=== PATIENT | female | born 1980 | race Caucasian/White ===

== ENCOUNTER 2022-06-12 14:31 | Outpatient (CLI) | payer BC, SELFPAY ==
--- NOTE | 2022-06-12 15:00 | CRLHL7_ITS ---
For Patients: As a result of the Century Cures Act, medical imaging exams and procedure reports are released immediately into your electronic medical record. You may view this report before your referring provider. If you have questions, please contact your health care provider. BILATERAL SCREENING MAMMOGRAM WITH COMPUTER-AIDED DETECTION AND TOMOSYNTHESIS TECHNIQUE: CC and MLO views were obtained. These mammographic images have been obtained using full-field digital technique. These mammographic images were interpreted with the benefit of computer-aided detection. Breast Tomosynthesis was used in this interpretation. COMPARISON FILM: RIGHT diagnostic 04/14/18, LEFT diagnostic 09/23/17. FINDINGS: There are scattered areas of fibroglandular density IMPRESSION: There is no radiographic evidence for malignancy. ASSESSMENT: BI-RADS Category 1: Negative RECOMMENDATION: Routine screening mammogram in 1 year. A lay language report of this examination will be provided to the patient. Isiah Boyer M.D. Diagnostic Radiologist [email or web address] FAIZA/Dictated by: Isiah Boyer MD @ 06/13/2022 12:28:00 PM (Electronically Signed)
== END 2022-06-12 14:32 | disposition home or self-care (01) ==
LOC: MAMMO 14:34
PROVIDERS: PCP Family Medicine; Visit Provider Physician Assistant
DX: Z12.31 Encounter for screening mammogram for malignant neoplasm of breast (principal)
CPT/HCPCS: 77063; 77067

== ENCOUNTER 2022-07-29 14:42 | Outpatient (CLI) | payer BC, SELFPAY ==
--- NOTE | 2022-07-29 15:00 | CRLHL7_ITS ---
For Patients: As a result of the Century Cures Act, medical imaging exams and procedure reports are released immediately into your electronic medical record. You may view this report before your referring provider. If you have questions, please contact your health care provider. INDICATION: Palpable area under right mandible, increased in size. TECHNIQUE: Targeted ultrasound under right mandible at the site of palpable abnormality. COMPARISON: Ultrasound 02/24/2020 of the palpable abnormality under the right mandible. FINDINGS: No definite mass or lymphadenopathy at the site of palpable abnormality under the right mandible. Subcutaneous soft tissue in the region of palpable abnormality appears mildly edematous with no hypervascularity. IMPRESSION: No discernible mass or lymphadenopathy. Given reported increase in size of the palpable abnormality consider CT of the neck with contrast for further evaluation. Dictated by Dallas Del Cid MD @ 07/29/2022 7:45:41 PM (Electronically Signed)
== END 2022-07-29 14:43 | disposition home or self-care (01) ==
LOC: US 14:43
PROVIDERS: PCP Family Medicine; Visit Provider Physician Assistant
DX: R22.1 Localized swelling, mass and lump, neck (principal)
CPT/HCPCS: 76536

== ENCOUNTER 2022-09-17 14:31 | Outpatient (CLI) | payer BC, SELFPAY ==
--- NOTE | 2022-09-17 15:00 | CRLHL7_ITS ---
For Patients: As a result of the Century Cures Act, medical imaging exams and procedure reports are released immediately into your electronic medical record. You may view this report before your referring provider. If you have questions, please contact your health care provider. INDICATION: Neck mass. TECHNIQUE: CT of the neck with 137 cc Isovue 370 iodinated contrast agent. Coronal and sagittal reconstructions are included. COMPARISON: None. FINDINGS: There is mild inflammatory fat stranding within the right submandibular subcutaneous soft tissues as well as the right supraclavicular subcutaneous soft tissues. No organized fluid collections. No mass or inflammatory process elsewhere within the neck. The oral cavity, nasopharyngeal, oropharyngeal and hypopharyngeal spaces are normal. The supraglottic, glottic and infraglottic larynx are normal. The airway including the trachea is normal and is patent. The parotid glands, submandibular and sublingual glands are normal in appearance. 23 millimeter hypodense nodule right thyroid lobe. The vascular structures opacify normally with contrast material. No suspicious lytic or blastic osseous lesions. Scattered cervical spondylosis without significant bony neural foraminal stenosis. No periapical dental disease. Visualized paranasal sinuses and mastoid air cells are clear. Visualized orbital and intracranial contents are normal. Mediastinum and soft tissues of the imaged chest wall are normal. Visualized portions of the upper lungs are clear. IMPRESSION: 1. Right submandibular/supraclavicular subcutaneous inflammatory fat stranding, which could reflect cellulitis. No evidence of abscess. 2. 23 millimeter hypodense nodule right thyroid lobe. 3. Otherwise, no mass or lymphadenopathy within the neck. Please note that all CT scans at this facility use dose modulation, iterative reconstruction, and/or weight-based dosing when appropriate to reduce radiation dose to as low as reasonably achievable. Dictated by Javier Sexton MD @ 09/18/2022 9:08:47 AM (Electronically Signed)
== END 2022-09-17 14:32 | disposition home or self-care (01) ==
LOC: CT 14:32
PROVIDERS: PCP Family Medicine; Visit Provider Family Medicine
DX: R22.1 Localized swelling, mass and lump, neck (principal); E04.1 Nontoxic single thyroid nodule
CPT/HCPCS: 70491; Q9967

== ENCOUNTER 2022-11-28 13:16 | Outpatient (CLI) | payer BC, SELFPAY ==
[2022-11-28 15:34] LABS: Chloride* 104 mmol/L (96-114); Potassium* 4.7 mmol/L (3.6-5.1); Sodium* 140 mmol/L (135-149)
[2022-11-28 15:37] LABS: Blood Urea Nitrogen* 15 mg/dL (5-24); Carbon Dioxide* 28 mmol/L (20-32); Creatinine* 0.9 mg/dL (0.5-1.5); Estimated Glomerular Filt Rate 82 ml/min
[2022-11-28 15:38] LABS: Calcium* 9.8 mg/dL (8.4-10.6); Glucose* 113 mg/dL (60-115)
[2022-11-28 15:40] LABS: C Reactive Protein* 0.7 mg/dL (0.5-1.0)
[2022-11-30 09:56] LABS: Rheumatoid Factor 15 IU/mL (0-14)
[2022-11-30 21:08] LABS: Anti-Nuclear Ab(ANA)IgG ELISA Detected (None Detected)
[2022-12-02 13:32] LABS: ANA Pattern Centromere; ANA Titer >1:2560; Antinuclear AntibodyHEp-2 Detected (<1:80)
== END 2022-11-28 13:17 | disposition home or self-care (01) ==
PROVIDERS: PCP Family Medicine; Visit Provider Family Medicine
DX: R53.83 Other fatigue (principal); I73.00 Raynaud's syndrome without gangrene; M25.50 Pain in unspecified joint; I10 Essential (primary) hypertension; E66.01 Morbid (severe) obesity due to excess calories; F41.9 Anxiety disorder, unspecified; E04.1 Nontoxic single thyroid nodule
CPT/HCPCS: 80048; 84443; 86039; 86140; 86431; 86618

== ENCOUNTER 2023-10-13 14:40 | Outpatient (CLI) | payer BC, SELFPAY ==
--- NOTE | 2023-10-13 15:00 | CRLHL7_ITS ---
For Patients: As a result of the Cures Act, medical imaging exams and procedure reports are released immediately into your electronic medical record. You may view this report before your referring provider. If you have questions, please contact your health care provider. BILATERAL SCREENING MAMMOGRAM WITH COMPUTER-AIDED DETECTION AND TOMOSYNTHESIS TECHNIQUE: CC and MLO views were obtained. These mammographic images have been obtained using full-field digital technique. These mammographic images were interpreted with the benefit of computer-aided detection. Breast Tomosynthesis was used in this interpretation. COMPARISON FILM: 06/12/22, 04/14/18, 09/23/17. FINDINGS: There are scattered areas of fibroglandular density IMPRESSION: There is no radiographic evidence for malignancy. ASSESSMENT: BI-RADS Category 1: Negative RECOMMENDATION: Routine screening mammogram in 1 year. A lay language report of this examination will be provided to the patient. ARNEL KUMAR M.D. Diagnostic/Nuclear Medicine Radiologist [email or web address] Transcribed: 2:48 p.mEloisa rios/Dictated by: Arnel Kumar MD @ 10/15/2023 9:12:00 AM (Electronically Signed)
== END 2023-10-13 14:41 | disposition home or self-care (01) ==
LOC: MAMMO 14:41
PROVIDERS: PCP Family Medicine; Visit Provider Family Medicine
DX: Z12.31 Encounter for screening mammogram for malignant neoplasm of breast (principal)
CPT/HCPCS: 77063; 77067

== ENCOUNTER 2023-12-08 05:06 | Emergency (ER) | payer BC, SELFPAY ==
[2023-12-08 05:36] VITALS: BP 137/84; PULSE 82; RESP 20; TEMP 36.9; O2SAT 97; BMI 37.8
--- NOTE | 2023-12-08 06:11 | ED.GENADULT ---
HPI - General Adult General Chief complaint: Cough Stated complaint: Cough /Congestion Time Seen by Provider: 12/08/23 05:28 Source: patient Mode of arrival: ambulatory History of Present Illness HPI narrative: 43-year-old female presents the emergency department for evaluation of cough for the past 5-7 days. History of viral-induced asthma, last tried her nebulizer at around 2:00 a.m. with no significant improvement in symptoms. Cough is becoming a little more productive. No fever. No severe shortness of breath. She is immunocompromised on Plaquenil for scleroderma. She also has a history of sleep apnea. Has tried Mucinex, DayQuil with no significant improvement in symptoms. No pertinent travel but has been is also ill. No prior history of intubation or hospitalization for her asthma. No nausea or vomiting. No chest pain or cardiac symptoms. Past medical history notable for Raynaud's disease, scleroderma, hypertension, depression. Medications are reviewed and are accurate as listed with the exception of the newly started Plaquenil which is not on her list. Allergies reviewed, verified. nonsmoker ROS notable for the generalized and HEENT and respiratory symptoms as above, otherwise denies times 12 systems.. Related Data Home Medications Medication Instructions Recorded Confirmed albuterol sulfate 90 mcg/actuation 2 puff inhalation Q4H PRN 04/04/22 12/08/23 aerosol inhaler cholecalciferol (vitamin D3) 25 1,000 unit PO DAILY 04/04/22 12/08/23 mcg (1,000 unit) tablet lorazepam 0.5 mg tablet 0.25 mg PO DIRECTED PRN 11/28/22 12/08/23 nifedipine 30 mg tablet,extended 30 mg PO DAILY 12/08/23 12/08/23 release 24 hr sertraline 25 mg tablet 25 mg PO DAILY 12/08/23 12/08/23 Previous Rx's Medication Instructions Recorded pantoprazole 40 mg tablet,delayed 40 mg PO QDAY #30 tabs 08/26/23 release (Protonix) losartan 100 1 tab PO DAILY #90 tabs 09/22/23 mg-hydrochlorothiazide 25 mg tablet metoprolol succinate 200 mg 200 mg PO DAILY #90 tabs 09/22/23 tablet,extended release 24 hr norethindrone (contraceptive) 0.35 0.35 mg PO ONCE #84 tabs 01/25/24 mg tablet (Emily) doxycycline hyclate 100 mg capsule 100 mg PO BID #14 caps 12/08/23 prednisone 20 mg tablet See Rx Instructions .Route 12/08/23 .COMPLEX #7 tabs Allergies Allergy/AdvReac Type Severity Reaction Status Date / Time codeine Allergy Intermediate Hives Verified 12/08/23 05:38 cetirizine Allergy Mild Hives Verified 12/08/23 05:38 loratadine Allergy Mild Hives Verified 12/08/23 05:38 [facility] Medical History Skin lesion ?L98.9 - Disorder of the skin and subcutaneous tissue, unspecified (ICD-10) GERD (gastroesophageal reflux disease) ?K21.9 - Gastro-esophageal reflux disease without esophagitis (ICD-10) Joint pain ?M25.50 - Pain in unspecified joint (ICD-10) Raynauds phenomenon ?I73.00 - Raynaud's syndrome without gangrene (ICD-10) Obstructive sleep apnea treated with continuous positive airway pressure (CPAP) ?G47.33 - Obstructive sleep apnea (adult) (pediatric) (ICD-10) ?Z99.89 - Dependence on other enabling machines and devices (ICD-10) Seasonal allergies ?J30.2 - Other seasonal allergic rhinitis (ICD-10) Obsessive-compulsive disorder ?F42.9 - Obsessive-compulsive disorder, unspecified (ICD-10) Morbid obesity ?E66.01 - Morbid (severe) obesity due to excess calories (ICD-10) Low serum high density lipoprotein (HDL) ?R74.8 - Abnormal levels of other serum enzymes (ICD-10) Hypertension ?I10 - Essential (primary) hypertension (ICD-10) History of gastroesophageal reflux (GERD) ?Z87.19 - Personal history of other diseases of the digestive system (ICD-10) Frequent nocturnal awakening ?G47.00 - Insomnia, unspecified (ICD-10) Depression ?F32.A - Depression, unspecified (ICD-10) Surgical History History of third molar tooth extraction (07/10/09) ?K08.409 - Partial loss of teeth, unspecified cause, unspecified class (ICD-10) Family History Father Alcoholism OCD (obsessive compulsive disorder) High blood pressure Anxiety disorder Mother COPD (chronic obstructive pulmonary disease) High blood pressure Anxiety disorder Maternal Grandmother Myocardial infarction, Onset Age: 75 Thyroid disease Other Pancreatitis Social History Narrative: . Self-employed. Has completed college. Nonsmoker. Social alcohol use. Denies recreational drug use. Denies concerns for safety or abuse. Smoking Status: Never smoker How often do you have a drink containing alcohol: never AUDIT-C Alcohol total score: 0 Non-prescribed substance use: denies use Little interest or pleasure in doing things: several days Feeling down, depressed, or hopeless: not at all Exam Const: Vital Signs, click to edit/add: Vital Signs - 24 hr 12/08/23 05:36 Temperature 98.5 F Pulse Rate [Right Pulse Oximeter] 82 Respiratory Rate 20 Blood Pressure [Ri ght Upper Arm] 137/84 Pulse Oximetry 97 Oxygen Delivery Me thod Room Air Documenting provider has reviewed patient's vital signs: yes Common normals: no apparent distress General appearance: comfortable HENMT: Common normals: normocephalic Head and scalp: normocephalic Mouth: oral and palatal mucosa normal Throat: posterior oropharynx normal Other: Nose with clear mucus rhinorrhea Eye: Common normals: conjunctivae normal General eye: normal appearance of both eyes Conjunctiva: conjunctiva(e) normal Neck & C-Spine: Other: Mild anterior cervical lymphadenopathy, no meningeal signs. Resp: Other: Normal respiratory effort, mild end-expiratory wheezing. Coarse crackles right lower posterior lung samuel, left side otherwise normal. Upper airway congestion does somewhat clear with cough. No increased respiratory effort. Cardio: Common normals: regular rate, regular rhythm, S1 normal heart sound, S2 normal heart sound and no murmurs Rate: regular rate Rhythm: regular rhythm Heart sounds: S1 normal and S2 normal Extremity: Common normals: normal to inspection and normal capillary refill Psych: Appearance: grossly normal Attitude: engaged Insight: insight good Judgement: judgment good Skin: Common normals: no rashes or lesions noted General skin exam: no rashes or lesions noted Course Course ED Course: Worsening cough inpatient on immunosuppressants with physical findings consistent with pneumonia. No signs of high fever, sepsis or cardiac disease. Recommended viral swabs. Will start with prednisone 20 mg p.o. x1, DuoNeb and doxycycline 100 mg p.o. x1. Anticipate continuing these medications on discharge. Reevaluation(s) Time of Reevaluation #1: 06:26 Reevaluation #1: Influenza B positive. Not a candidate for antiviral medicine due to duration of illness. Alarm symptoms were reviewed. Patient will continue on 1 week of doxycycline and 5 days of prednisone, continue nebulizer. See discharge instructions. Vital Signs Vital signs: Initial Vital Signs Respiratory Effort Normal, Spontaneous, Non-Labored 12/08/23 05:28 Respiratory Depth Normal 12/08/23 05:28 Respiratory Pattern Normal 12/08/23 05:28 Vital Signs Temperature 98.5 F 12/08/23 05:36 Pulse Rate 82 12/08/23 05:36 Respiratory Rate 20 12/08/23 05:36 Blood Pressure 137/84 12/08/23 05:36 Pulse Oximetry 97 12/08/23 05:36 Oxygen Delivery Method Room Air 12/08/23 05:36 Temperature 98.5 F 12/08/23 05:36 Pulse Rate 82 12/08/23 05:36 Respiratory Rate 20 12/08/23 05:36 Blood Pressure 137/84 12/08/23 05:36 Pulse Oximetry 97 12/08/23 05:36 Oxygen Delivery Method Room Air 12/08/23 05:36 Medications Administered Medications: Generic Name Dose Route Start Last Admin Trade Name Freq PRN Reason Stop Dose Admin Albuterol/Ipratropium 1 neb 12/08/23 06:11 12/08/23 06:15 Iprat-Albut 0.5-2.5 Mg/3 Ml Neb 12/08/23 06:12 1 neb ONCE ONE Administration Doxycycline Hyclate 100 mg 12/08/23 06:11 12/08/23 06:15 Doxycycline Hyclate 100 Mg PO 12/08/23 06:12 100 mg ONCE ONE Administration Prednisone 20 mg 12/08/23 06:11 12/08/23 06:15 Prednisone 10 Mg Tablet PO 12/08/23 06:12 20 mg ONCE ONE Administration Medical Decision Making Lab Data Lab results reviewed: Yes I reviewed the patient's lab results Lab results narrative: Positive for influenza B. Labs: Lab Results 12/08/23 Range/Units 05:30 SARS-CoV-2 (PCR) Negative SARS-CoV-2 (Negative) Influenza Type A (PCR) Negative PCR FLU A (Negative) Influenza Type B (PCR) POSITIVE PCR FLU B A (Negative) RSV (PCR) Negative PCR RSV (Negative) Discharge Plan Discharge Clinical Impression: Asthma exacerbation, Community acquired pneumonia Patient Disposition: Home, Self-Care Instructions: Influenza (DC), Pneumonia (ED) Additional Instructions: As we discussed, I recommend treatment of the asthma with a few days of prednisone, twice daily for 2 days, then once daily for an additional 3 days. Use your nebulizer every 2 hours as needed. Hopefully, you only need this 2-3 times per day. I am hearing pneumonia in the right lower lung, I recommend doxycycline 1 pill 2 times daily for the next week. Your swabs are positive for influenza B, this likely started your illness. It is too late in the course of the illness to treat with antiviral medications. Any severe worsening, present to the emergency department. Otherwise, expect persistent cough for 2-3 weeks but fevers, body aches and overall breathing status should be markedly better within the next 3 days. Activity Level: Activity as Tolerated Discharge Diet: Regular Prescriptions: New doxycycline hyclate 100 mg capsule 100 mg PO BID Qty: 14 0RF prednisone 20 mg tablet See Rx Instructions .ROUTE .COMPLEX Qty: 7 0RF Rx Instructions: 20 mg by mouth 2 times daily for 2 days, then once daily until gone. No Action norethindrone (contraceptive) [Emily] 0.35 mg tablet 0.35 mg PO ONCE Qty: 84 4RF Rx Instructions: Take one tablet by mouth one time daily. cholecalciferol (vitamin D3) 25 mcg (1,000 unit) tablet 1,000 unit PO DAILY albuterol sulfate 90 mcg/actuation HFA aerosol inhaler 2 puff inhalation Q4H PRN lorazepam 0.5 mg tablet 0.25 mg PO DIRECTED PRN Rx Instructions: 1 - 3 pills po qd as needed when flying nifedipine 30 mg tablet extended release 24hr 30 mg PO DAILY sertraline 25 mg tablet 25 mg PO DAILY pantoprazole [Protonix] 40 mg tablet,delayed release (DR/EC) 40 mg PO QDAY Qty: 30 2RF losartan-hydrochlorothiazide 100-25 mg tablet 1 tab PO DAILY Qty: 90 0RF metoprolol succinate 200 mg tablet extended release 24 hr 200 mg PO DAILY Qty: 90 0RF Follow Up/Referrals: Isiah Mora MD [Primary Care Provider] - Stand Alone Forms: [employer] Info Instructions
[2023-12-08] MEDS: predniSONE 10 MG TABLET 20 MG PO (06:15)
[2023-12-08] MEDS: DOXYCYCLINE HYCLATE 100 MG PO (06:15)
[2023-12-08] MEDS: IPRAT-ALBUT 0.5-2.5 MG/3 ML NEB 1 NEB IH (06:15)
[2023-12-08 06:20] LABS: PCR FLU A Negative PCR FLU A (Negative); PCR FLU B POSITIVE PCR FLU B (Negative); PCR RSV Negative PCR RSV (Negative); SARS PCR* Negative SARS-CoV-2 (Negative)
[2023-12-08 06:53] VITALS: BP 128/74; PULSE 85; RESP 20; TEMP 36.9; O2SAT 97
[2023-12-08 06:54] VITALS: BP 128/74; PULSE 85; RESP 20; TEMP 36.9
== END 2023-12-08 06:54 | disposition home or self-care (01) ==
LOC: ED 06:22
PROVIDERS: Emergency Provider Family Medicine; PCP Family Medicine
DX: J45.901 Unspecified asthma with (acute) exacerbation (principal); J18.9 Pneumonia, unspecified organism
CPT/HCPCS: 87631; 94640; 99284; A9270; J7512

== ENCOUNTER 2024-07-14 14:28 | Outpatient (CLI) | payer BC, SELFPAY ==
[2024-07-21 22:53] LABS: HPV Source Cervix; HPV, High Risk by TMA Not Detected
== END 2024-07-14 14:29 | disposition home or self-care (01) ==
PROVIDERS: PCP Family Medicine; Visit Provider Physician Assistant
DX: Z12.4 Encounter for screening for malignant neoplasm of cervix (principal); E04.1 Nontoxic single thyroid nodule; R74.8 Abnormal levels of other serum enzymes
CPT/HCPCS: 80061; 84443; 87624; 87625; 88141; 88142

== ENCOUNTER 2024-11-03 15:03 | Emergency (ER) | payer BC, SELFPAY ==
[2024-11-03 15:12] VITALS: BP 131/90; PULSE 88; RESP 16; TEMP 36.7; O2SAT 96; BMI 46.3
--- NOTE | 2024-11-03 17:37 | ED.BACK ---
HPI - Back Pain/Injury General Chief Complaint: Back Injury/Pain Stated Complaint: injured back, L leg feels numb Time Seen by Provider: 11/03/24 17:21 History of Present Illness HPI Narrative: This 44-year-old female comes in with low back pain over the past several days. The pain is worsened now and is radiating down to her left heel. She states that it began after she was carrying a bag of water softener salt. She does not report any other strenuous activity or significant injury event. She has been taking Tylenol and ibuprofen without much relief. Related Data Home Medications ?Medication ?Instructions ?Recorded ?Confirmed albuterol sulfate 90 mcg/actuation 2 puff inhalation Q4H PRN 04/04/22 11/03/24 aerosol inhaler lorazepam 0.5 mg tablet 0.25 mg PO DIRECTED PRN 11/28/22 11/03/24 hydroxychloroquine 200 mg tablet 200 mg PO QDAY 01/11/24 11/03/24 Previous Rx's ?Medication ?Instructions ?Recorded norethindrone (contraceptive) 0.35 0.35 mg PO ONCE #84 tabs 10/29/23 mg tablet (Emily) albuterol sulfate 2.5 mg/3 mL 2.5 mg (3 mL) inhalation Q4H #90 mL 12/08/23 (0.083 %) solution for nebulization pantoprazole 40 mg tablet,delayed 40 mg PO QDAY #90 tabs 02/18/24 release (Protonix) nifedipine 60 mg tablet,extended 60 mg PO DAILY #90 tabs 04/20/24 release 24 hr losartan 100 1 tab PO DAILY #90 tabs 09/15/24 mg-hydrochlorothiazide 25 mg tablet metoprolol succinate 200 mg 200 mg PO DAILY #90 tabs 09/15/24 tablet,extended release 24 hr cyclobenzaprine 10 mg tablet 10 mg PO TID #15 tabs 11/03/24 gabapentin 100 mg capsule 100 mg PO TID #30 caps 11/03/24 ketorolac 10 mg tablet 10 mg PO Q8H 5 days #15 tabs 11/03/24 methylprednisolone 4 mg tablets in See Rx Instructions PO .COMPLEX 11/03/24 a dose pack (Medrol (Akira)) #21 ea Allergies Allergy/AdvReac Type Severity Reaction Status Date / Time cetirizine Allergy Intermediate Hives Verified 11/03/24 15:11 codeine Allergy Intermediate Hives Verified 11/03/24 15:11 hydrocodone Allergy Intermediate Hives Verified 11/03/24 15:11 loratadine Allergy Intermediate Hives Verified 11/03/24 15:11 oxycodone Allergy Intermediate Hives Verified 11/03/24 15:11 Review of Systems Status of ROS: Reports: 10 or more systems reviewed and unremarkable except as noted in History and below Narrative: Constitutional: No fevers, no weight gain or loss. Eyes: No discharge. No vision changes. HENT: No congestion, no sore throat, no ear pain. Cardiovascular: No chest pain, no palpitations. Respiratory: No shortness of breath, no wheezes, no cough. Gastrointestinal: No abdominal pain, no vomiting, no diarrhea. Genitourinary: No dysuria, no hematuria. Musculoskeletal: Low back pain radiating down the left leg. Skin: No rashes, no pruritis. Neurological: No dizziness, weakness, sensory change, speech change. Endo/Heme/Allergies: No bruising or bleeding. No polydipsia. Pysch: no suicidality, no anxiety, no insomnia. All other systems reviewed and are negative. [facility] Medical History Chronic fatigue ?R53.82 - Chronic fatigue, unspecified (ICD-10) Systemic sclerosis with limited cutaneous involvement (05/2023) ?M34.9 - Systemic sclerosis, unspecified (ICD-10) Asthma ?J45.909 - Unspecified asthma, uncomplicated (ICD-10) Primary hypertension ?I10 - Essential (primary) hypertension (ICD-10) Generalized anxiety disorder ?F41.1 - Generalized anxiety disorder (ICD-10) Major depression, recurrent ?F33.9 - Major depressive disorder, recurrent, unspecified (ICD-10) GERD (gastroesophageal reflux disease) ?K21.9 - Gastro-esophageal reflux disease without esophagitis (ICD-10) Joint pain ?M25.50 - Pain in unspecified joint (ICD-10) Raynauds phenomenon ?I73.00 - Raynaud's syndrome without gangrene (ICD-10) Obstructive sleep apnea treated with continuous positive airway pressure (CPAP) ?G47.33 - Obstructive sleep apnea (adult) (pediatric) (ICD-10) ?Z99.89 - Dependence on other enabling machines and devices (ICD-10) Seasonal allergies ?J30.2 - Other seasonal allergic rhinitis (ICD-10) Obsessive-compulsive disorder ?F42.9 - Obsessive-compulsive disorder, unspecified (ICD-10) Morbid obesity ?E66.01 - Morbid (severe) obesity due to excess calories (ICD-10) Low serum high density lipoprotein (HDL) ?R74.8 - Abnormal levels of other serum enzymes (ICD-10) History of gastroesophageal reflux (GERD) ?Z87.19 - Personal history of other diseases of the digestive system (ICD-10) Frequent nocturnal awakening ?G47.00 - Insomnia, unspecified (ICD-10) Surgical History History of fine needle aspiration with imaging guidance (~2022) ?Z98.890 - Other specified postprocedural states (ICD-10) History of third molar tooth extraction (07/10/09) ?K08.409 - Partial loss of teeth, unspecified cause, unspecified class (ICD-10) Family History Father Alcoholism OCD (obsessive compulsive disorder) High blood pressure Anxiety disorder Mother COPD (chronic obstructive pulmonary disease) High blood pressure Anxiety disorder Psoriasis Maternal Grandmother Myocardial infarction, Onset Age: 75 Thyroid disease Other Pancreatitis Social History Narrative: . Self-employed. Has completed college. Nonsmoker. Social alcohol use. Denies recreational drug use. Denies concerns for safety or abuse. What is your current living situation?: I presently have a place to live Problems where you live: no known problems In the past 12 months, utilities in danger of being shut off: no In past 12 months, lack of transportation kept you from medical appts, meetings, work, or getting things needed for daily living: no In the past 12 mos, have been you worried that your food would run out before you had money to buy more?: never true In the past 12 mos, the food you bought just didn't last and you didn't have money to buy more?: never true Smoking Status: Never smoker How often do you have a drink containing alcohol: never AUDIT-C Alcohol total score: 0 Non-prescribed substance use: denies use How often does anyone, including family, friends and others, physically hurt you: never How often does anyone, including family, friends and others, insult or talk down to you: never How often does anyone, including family, friends and others, threaten you with harm: never How often does anyone, including family, friends and others, scream or curse at you: never Exam Narrative: Exam Narrative: Constitutional: Well-developed, well-nourished, no acute distress. HEENT: Normocephalic, atraumatic. Neck: Normal range of motion. Nontender. Supple. Heart: Intact distal pulses. Lungs: No chest discomfort. No wheezes, rhonchi, or rales. Clear to auscultation. Abdomen: Nontender. Back: Diffuse pain in the low back left greater than right with pain radiating down the left leg. Extremities: Normal range of motion. No injury. Skin: Intact. No rash. Warm. No erythema or pallor. Neurologic: No altered sensation. No weakness. Alert and oriented. Psychiatric: No suicidality. No anxiety or depression. No insomnia. Nursing notes and vitals signs are reviewed. Const: Vital Signs, click to edit/add: Vital Signs - 24 hr 11/03/24 15:12 Temperature 98.0 F Pulse Rate [Pulse Oximeter] 88 Respiratory Rate 16 Blood Pressure [Ri ght Upper Arm] 131/90 H Pulse Oximetry 96 Oxygen Delivery Me thod Room Air Course Vital Signs Vital signs: Initial Vital Signs Temperature 98.0 F 11/03/24 15:12 Temperature Source Temporal Artery Scan 11/03/24 15:12 Pulse Rate 88 11/03/24 15:12 Pulse Rhythm Regular 11/03/24 15:12 Pulse Strength 3+ Normal 11/03/24 15:12 Respiratory Rate 16 11/03/24 15:12 Blood Pressure 131/90 H 11/03/24 15:12 Blood Pressure Mean 103 11/03/24 15:12 Blood Pressure Position Sitting 11/03/24 15:12 Pulse Oximetry 96 11/03/24 15:12 Oxygen Delivery Method Room Air 11/03/24 15:12 Vital Signs Temperature 98.0 F 11/03/24 15:12 Pulse Rate 88 11/03/24 15:12 Respiratory Rate 16 11/03/24 15:12 Blood Pressure 131/90 H 11/03/24 15:12 Pulse Oximetry 96 11/03/24 15:12 Oxygen Delivery Method Room Air 11/03/24 15:12 Temperature 98.0 F 11/03/24 15:12 Pulse Rate 88 11/03/24 15:12 Respiratory Rate 16 11/03/24 15:12 Blood Pressure 131/90 H 11/03/24 15:12 Pulse Oximetry 96 11/03/24 15:12 Oxygen Delivery Method Room Air 11/03/24 15:12 MDM - Back Pain/Injury MDM Narrative Medical decision making narrative: This patient has low back pain with pain radiating down the leg typical of a lumbar radiculopathy. There was no mechanism of injury that requires imaging at this time. The patient did receive an intramuscular injection of Toradol. I did provide prescriptions also for Toradol, Flexeril, gabapentin, Medrol Dosepak. I advised her to follow-up with her spine clinic as needed. Discharge Plan Discharge Clinical Impression: Acute left lumbar radiculopathy Patient Disposition: Home, Self-Care Condition: Stable Additional Instructions: Take medication as needed and directed. Gentle stretching and strengthening with activity is encouraged as tolerated. Follow up with Spine Clinic for ongoing management. Call [phone] for appointment. Prescriptions: New cyclobenzaprine 10 mg tablet 10 mg PO TID Qty: 15 0RF ketorolac 10 mg tablet 10 mg PO Q8H 5 Days Qty: 15 0RF gabapentin 100 mg capsule 100 mg PO TID Qty: 30 2RF methylprednisolone [Medrol (Akira)] 4 mg tablets,dose pack See Rx Instructions .ROUTE .COMPLEX Qty: 21 0RF Rx Instructions: orally per package directions No Action norethindrone (contraceptive) [Emily] 0.35 mg tablet 0.35 mg PO ONCE Qty: 84 4RF Rx Instructions: Take one tablet by mouth one time daily. hydroxychloroquine 200 mg tablet 200 mg PO QDAY albuterol sulfate 90 mcg/actuation HFA aerosol inhaler 2 puff inhalation Q4H PRN lorazepam 0.5 mg tablet 0.25 mg PO DIRECTED PRN Rx Instructions: 1 - 3 pills po qd as needed when flying albuterol sulfate 2.5 mg /3 mL (0.083 %) solution for nebulization 2.5 mg inhalation Q4H Qty: 90 1RF pantoprazole [Protonix] 40 mg tablet,delayed release (DR/EC) 40 mg PO QDAY Qty: 90 3RF nifedipine 60 mg tablet extended release 24hr 60 mg PO DAILY Qty: 90 0RF losartan-hydrochlorothiazide 100-25 mg tablet 1 tab PO DAILY Qty: 90 0RF metoprolol succinate 200 mg tablet extended release 24 hr 200 mg PO DAILY Qty: 90 0RF Follow Up/Referrals: Isiah Mora MD [Primary Care Provider] - Stand Alone Forms: [employer] Info Instructions
[2024-11-03] MEDS: KETOROLAC 30 MG/ML inj IM (17:48)
--- OUTSIDE RECORDS SUMMARY | 2024-11-03 17:59 | XMS_ITS | Clinical Summary ---
Author Organization [facility] Address [place], [place] [address] Care Team Providers Care Emblem Maker Name Role Phone Gerardo Gross MD Primary Care Provider Allergies Active Allergy Reactions Criticality Noted Date Comments Cetirizine Hives High 02/15/2017 Loratadine Hives High 10/11/2005 Medications metoprolol succinate (TOPROL XL) 100 mg Sustained-Relea se tablet Take 1 tablet by mouth once daily. 12/02/2016 Active sertraline (ZOLOFT) 50 mg tablet Take 1.5 tablets by mouth every morning. 0 01/25/2019 Active ibuprofen (ADVIL; MOTRIN) 800 mg tablet Take 1 tablet by mouth every 8 hours if needed. 1 12/20/2018 Active norethindrone, Contraceptive, (MICRONOR, 28,) 0.35 mg tablet Take 1 tablet by mouth once daily. 1 12/28/2018 Active triamterene-hyd rochlorothiazid e, 37.5-25 mg, (DYAZIDE) 37.5-25 mg capsule Take 1 capsule by mouth one time. 08/07/2020 Active cholecalciferol (VITAMIN D3) 1,000 unit tablet take 1 tablet (1000 units)by mouth daily 08/07/2020 Active ergocalciferol (VITAMIN D2; DRISDOL) 50,000 unit capsule take 1 capsule (30329 UNIT) by mouth ONCE WEEKLY 05/04/2020 Active famotidine (PEPCID) 20 mg tablet take 1 tablet (20 MG) by oral route DAILY 06/02/2020 Active Active Problems No known active problems Immunizations Name Administration Dates Next Due DTP 06/29/1986 Influenza, IIV4 08/07/2020,08/10/2018 Influenza, IIV4 (=>6mos) MDV 09/16/2019,06/30/20 17,07/11/2016 Oral Polio Vaccine 06/29/1986 Tdap 05/27/2019,12/02/2016 Family History Medical History Relation Name Comments Hypertension Father Heart Disease Maternal Grandmother Hypertension Mother Relation Name Status Comments Father Alive Maternal Grandmother Mother Alive Social History Tobacco Use Types Packs/Day Years Used Date Smoking Tobacco: Never Smokeless Tobacco: Never Tobacco Cessation:Counseling Given: Yes Alcohol Use Standard Drinks/Week Comments Yes 0 (1 standard drink = 0.6 oz pur e alcohol) daily PHQ-2 Answer Date Recorded PHQ-2 TOTAL SCORE 0 09/19/2020 Social Connections Answer Date Recorded Frequency of Communication with Friends and Fami ly Not on file 10/05/2021 Financial Resource Strain Answer Date R ecorded Difficulty of Paying Living Expenses Not on file 10/05/2021 Difficulty of Paying Living Expenses Not on file 10/05/2021 Comments No Sex and Gender Information Value Date Recorded Sex Assigned at Not on file Legal Sex Female 11:12 AM CDT Gender Identity Not on file Sexual Orientation Not on file Obstetrics History Last Filed Vital Signs Vital Sign Reading Time Taken Comments Blood Pressure 143/97 09/19/2020 9:40 AM FISH CLEANER Pulse 91 09/19/2020 9:37 AM FISH CLEANER Temperature - - Respiratory Rate - - Oxygen Saturation 97% 09/19/2020 9:37 AM FISH CLEANER Inhaled Oxygen Concentration - - Weight 127.8 kg (281 lb 12.8 oz) 09/19/2020 9:37 AM FISH CLEANER Height - - Body Mass Index - - Plan of Treatment Health Maintenance Due Date Last Done Comments HIV for age 15-65 1996 BMI (ht and wt on same day) for age 18+ 1999 Hepatitis C screening for age 18-79 1999 Pap test for age 21-65 02/16/2021 02/16/2018, 2017 Depression screening for age 12+ 09/19/2021 09/19/2020, 06/02/2019 COVID-19 vaccine series (2023- season) 2024 Influenza for age 9-49 06/05/2024 0, 09/16/2019, 08/10/2018, Additional history exists Tetanus booster 05/27/2029 05/27/2019, 12/02/2016 Tdap Completed 05/27/2019, 12/02/2016 Pneumococcal series for age 6-49 Aged Out No longer eligible based on patient's age to complete this topic Procedures Procedure Name Priority Date/Time Associated Diagnosis Comments DOCK OPERATIONS SUPERVISOR THIN PREP PAP SCREEN IMAGED Routine 02/16/2018 12:10 PM CDT from Last 3 Months or Most Recently Relevant to Health Maintenance Results * DOCK OPERATIONS SUPERVISOR THIN PREP PAP SCREEN IMAGED (02/16/2018 12:10 PM CDT) Case Report Gynecologic Cytology Report Case: [id number] Authorizing Provider: Maura Mercer PA-C Collected: 02/16/2018 1210 First Screen: Judah Oropeza Received: 02/18/2018 1214 Specimen: DOCK OPERATIONS SUPERVISOR ThinPrep Vial Screening, Cervical/Vaginal 02/24/2018 6:01 PM CD[facility] INTERPRETATION/ RESULT NEGATIVE FOR INTRAEPITHELIAL LESION OR MALIGNANCY (NIL) (none) 02/24/2018 6:01 PM CDT [facility] [employer] [facility] IMEN ADEQUACY Satisfactory for evaluation Endocervical component present 02/24/2018 6:01 PM CDT [facility] HPV REQUEST HPV and PAP 02/24/2018 6:01 PM CDT [facility] [employer] [facility] Date of LMP 02/02/2018 02/24/2018 6:01 PM CDT [facility] [employer] [facility] Last Pap Date 02/24/2018 6:01 PM CDT [facility] [employer] [facility] Comment:10 years ago Last Pap Result NIL 8 6:01 PM CDT [facility] Automated Review Successful 02/24/2018 6:01 PM CDT [facility] [employer] [facility] Comment:Specimen processed s uccessfully by automated prescription clerk device, ThinPrep Imaging System, [employer] ANCILLARY TESTING DOCK OPERATIONS SUPERVISOR HPV Ordered, Please see separate report 02/24/2018 6:01 PM CDT [facility] Note The pap test is a screening technique, not a diagnostic procedure. It is used primarily to screen for squamous cancers and precursor lesions. Published studies have shown that it is subject to both false negative and false positive results. The pap test should not be used as the sole means to diagnose or exclude pre-malignant and malignant lesions. Interpreted at [facility] ([facility], [facility], [facility], [facility], [facility], [facility], [facility]) 02/24/2018 6:01 PM CDT [facility] Other (Cervical/Vagina l) 02/16/2018 12:10 PM CDT 02/18/2018 12:14 PM CDT January Ruslan [facility] PATHOLOGY/CYTOLOGY Final R esult [facility] [address] [place] [address], from Last 3 Months or Most Recently Relevant to Health Maintenance Insurance [facility] BLUE PLUS OUT OF NETWORK Care Teams Emblem Maker Relationship Specialty Start Date End Date Gerardo Gross MD PCP - General Family Practice 01/03/17
--- OUTSIDE RECORDS SUMMARY | 2024-11-03 17:59 | XMS_ITS | Encounter Summary ---
Author Organization [facility] Address [address] [place] [id number] Care Team Providers Care Gasoline Dragline Operator Name Role Phone Elsewhere, Pcp Primary Care Provider Unavailabl e Reason for Referral * Outpatient (Routine) - Closed Specialty Diagnoses / Procedures Referred By Contefrain t Referred To Contact Rheumatology Diagnoses Pain Joint Boby Zimmer III, M.D. [address] [place] [phone] Phone: tel: fax: [facility] Referral ID Status Reason Start Date Expiration Date Visits Re quested Visits Authorized [id number] Closed 02/18/2023 02/17/2026 1 1 Encounter Details Date Type Department Care Team (Late st Contact Info) Description 02/18/2023 Orders Only Division of Rheumatology in [place], [place] [address] [place] [phone] [facility], ProviderMD Pain Joint Social History Tobacco Use Types Packs/Day Years Used Date Smoking Tobacco: Never Assessed Nutrition Answer Date Recorded Nutrition: EVOO Fat Source Unknown 02/17 Nutrition: Servings of Fruits/Vegetables per Day Not on file 02/17/2023 Dental Answer Date Recorded Dental: Regular Dentist Unknown 02/18/20 23 Comments Unknown Sex and Gender Information Value Date Recorded Sex Assigned at Female 05/02/2023 7:33 PM CDT Legal Sex Female 2:16 PM CDT Gender Identity Female 05/02/2023 7:33 PM CDT Sexual Orientation Straight 05/02/2023 7: 33 PM CDT documented as of this encounter Plan of Treatment Scheduled Referrals Name Type Priority Associated Diagnoses Order Schedule Rheumatology office visit (clinic) Outpatient Referral Routine Pain Joint Expected: 02/18/2023 (Approximate), Expires: 05/21/2024 documented as of this encounter Visit Diagnoses Diagnosis Pain Joint documented in this encounter Care Teams Gasoline Dragline Operator Relationship Specialty Start Date End Date Elsewhere, Pcp PCP - General Internal Medicine 08/20/23 documented as of this encounter
--- OUTSIDE RECORDS SUMMARY | 2024-11-03 17:59 | XMS_ITS | Clinical Summary ---
Author Organization [facility] Address [address] [place] [address] Care Team Providers Care Irish Moss Gatherer Name Role Phone Elsewhere, Pcp Primary Care Provider Unavailabl e Source Comments Patient records contain information from all sites at [facility]. For routine questions regarding patient records, call [phone] during business hours, M-F 8:00 AM - 5:00 PM Central Time. Record requests for emergency care only can be directed to [phone] at any time.[facility] Allergies Active Allergy Reactions Criticality Noted Date Comments Cetirizine Hives (Reselect Reac tion),Hives only, no other systemic symptoms High 02/15/2017 Codeine Other (see comments),Itching High 023 Hydrocodone Itching 05/05/2023 Loratadine Hives (Reselect Reac tion),Hives only, no other systemic symptoms High 10/11/2005 Medications albuterol 90 mcg/actuation inhaler Inhale 2 puffs as needed. 04/04/20 22 Active calcium carbonate 1000 mg (400 mg calcium) chewable tablet Chew 1 tablet daily. Active LORazepam (ATIVAN) 0.25 mg tablet Take 0.25 mg by mouth as needed (flying). Active losartan-hydroCH LOROthiazide (HYZAAR) 100-25 mg per tablet Take 1 tablet by mouth daily. 03/23/20 23 Active magnesium 250 mg tablet Take 250 mg by mouth daily. Active metoprolol succinate (TOPROL-XL) 200 mg 24 hr tablet Take 200 mg by mouth daily. Active norethindrone (MICRONOR) 0.35 mg tablet Take 1 tablet by mouth daily. Active pantoprazole (PROTONIX) 40 mg EC tablet Take 40 mg by mouth daily. 04/26/20 Active pyridoxine, vitamin B6, (vitamin B-6) 100 mg tablet Take 100 mg by mouth daily. Active sertraline (ZOLOFT) 50 mg tablet Take 50 mg by mouth daily. Active hydrOXYchloroQUI NE (PLAQUENIL) 200 mg tabletIndication s:Scleroderma Limited (HCC) Take 1 tablet (200 mg total) by mouth 2 (two) times a day. 180 tablet 05/12/20 Active cholecalciferol, vitamin D3, (VITAMIN D3 ORAL) Take 50,000 Units by mouth once a week. Active cyanocobalamin (vitamin B-12) 1,000 mcg tablet Take 1,000 mcg by mouth daily. Active amLODIPine (NORVASC) 10 mg tablet Take 10 mg by mouth daily. 08/31/20 Active albuterol 2.5 mg /3 mL nebulizer solutionIndicati ons:Asthma Mild Intermittent With Acute Exacerbation (HCC) Inhale 3 mL (2.5 mg total) by nebulization every 6 (six) hours as needed for wheezing. 75 mL 1 10/21/19 25 026 Active cefdinir (Omnicef) 300 mg capsuleIndicatio ns:Pneumonia Take 1 capsule (300 mg total) by mouth every 12 (twelve) hours for 5 days. 10 capsule 10/21/19 25 025 predniSONE (Deltasone) 20 mg tabletIndication s:Asthma Mild Intermittent With Acute Exacerbation (HCC) Take 2 tablets (40 mg total) by mouth daily for 5 days. 10 tablet 10/21/19 25 025 Hospital, Clinic, or Other Facility Administered Medication Ordered Dose Route Frequency Start Date End Date Status lidocaine 4 % cream 1 Application (LMX) 1 Application top As needed 10/01/2023 Acti ve Active Problems Problem Noted Date Diagnosed Date Apnea Sleep Obstructive 05/07/2023 Hypertension Essential Primary 05/07/2023 Gastroesophageal Reflux Disease Without Esophagi tis 05/07/2023 Obsessive Compulsive Disorder 05/07/2023 Raynaud's Phenomena Without Gangrene 05/07/2023 Rhinitis Seasonal 05/07/2023 Nodule Thyroid Nontoxic 05/07/2023 Lichen Simplex Chronicus 05/07/2023 Overview (05/07/2023): Lesion on the underside right chin showed inflammatory dermal infiltrate suggestive of lichen simplex chronicus. There is no evidence for morphea. Scleroderma Limited 05/07/2023 Overview (05/07/2023): Manifestations: Asymmetric biphasic Raynaud's phenomenon, arthralgia, fatigue, telangiectasias on right hand fingers and forehead, and GERD. Outside testing revealed positive ALFREDO centromere pattern 1:2560. Anxiety Generalized Disorder 05/07/2023 Asthma NOS 05/07/2023 Encounters Date Type Department Care Team Description 10/21/2024 7:15 PM ENGINEERING INSPECTOR - 10/21/2024 9:35 PM ENGINEERING INSPECTOR [facility] [address] [place] [address] [phone] Aleksey Meadows, P.A.Shelley., P.A. Pneumonia (Primary Dx); Asthma Mild Intermittent With Acute Exacerbation (HCC) Discharge Disposition: Home or Self Care from Last 3 Months Family History Medical History Relation Name Comments Alcohol abuse Father mata Anxiety disorder Father mata Arthritis Father mata Depression Father mata Hypertension Father mata Skin cancer Father mata squamous Sleep apnea Father mata Coronary artery disease Maternal Grandmother nancy stint Obesity Maternal Grandmother nancy Psoriasis Maternal Grandmother nancy Thyroid disease Maternal Grandmother nancy Arthritis Mother pasha Asthma Mother pasha Depression Mother pasha Hypertension Mother pasha Obesity Mother pasha Osteoporosis Mother pasha Psoriasis Mother pasha Sleep apnea Mother pasha Rheumatoid arteritis Neg Hx Systemic lupus erythematosus Neg Hx Relation Name Status Comments Father mata Maternal Grandmother nancy Mother pasha Social History Tobacco Use Types Packs/Day Years Used Date Smoking Tobacco: Never Passive Smoke Exposure: Never Smokeless Tobacco: Never Tobacco Cessation:Counseling Given: Not Answered Alcohol Use Standard Drinks/Week Comments Yes 8 (1 standard drink = 0.6 oz pur e alcohol) Humiliation, Afraid, Rape, and Kick questionnair e Answer Date Recorded Within the last year, have y ou been afraid of your partner or ex-partner? No 05/02/2023 Within the last year, have y ou been humiliated or emotionally abused in other ways by your partner or ex-partner? No Within the last year, have y ou been kicked, hit, slapped, or otherwise physically hurt by your partner or ex-partner? No 05/02/2023 Within the last year, have y ou been raped or forced to have any kind of sexual activity by your partner or ex-partner? No 05/02/2023 Overall Financial Resource Strain (CARDIA) Answe r Date Recorded How hard is it for you to pa y for the very basics like food, housing, medical care, and heating? Somewhat hard 05/02/2023 Exercise Vital Sign Answer Date Recorde d On average, how many days pe r week do you engage in moderate to strenuous exercise (like a brisk walk)? 0 days 05/02/2023 On average, how many minutes do you engage in exercise at this level? 0 min 05/02/2023 Hunger Vital Sign Answer Date Recorded Within the past 12 months, y ou worried that your food would run out before you got the money to buy more. Never true 05/02/20 Within the past 12 months, t he food you bought just didn't last and you didn't have money to get more. Never true 05/02/2023 PRAPARE - Transportation Answer Date Re corded In the past 12 months, has l ack of transportation kept you from medical appointments or from getting medications? No 04/05 In the past 12 months, has l ack of transportation kept you from meetings, work, or from getting things needed for daily living? No 05/02/2023 Nutrition Answer Date Recorded On average, how many serving s of fruits and vegetables do you eat per day (serving size is equal to 1 cup or approximately the size of a tennis ball)? 0-2 05/02/2023 Dental Answer Date Recorded Dental: Regular Dentist No 05/02/20 Employment Answer Date Recorded Employment status Employed and actively working without restrictions 05/02/2023 Housing Stability Answer Date Recorded What is your living situation today? I have a [facility] place to live 05/02/2023 Comments No Sex and Gender Information Value Date Recorded Sex Assigned at Female 05/02/2023 7:33 PM CDT Legal Sex Female 2:16 PM CDT Gender Identity Female 05/02/2023 7:33 PM CDT Sexual Orientation Straight 05/02/2023 7: 33 PM CDT Last Filed Vital Signs Vital Sign Reading Time Taken Comments Blood Pressure 136/103 10/21/2024 6:07 PM ENGINEERING INSPECTOR Patient expressed having High blood pressure Pulse 109 10/21/2024 6:03 PM ENGINEERING INSPECTOR Temperature 36.3 C (97.3 F) 10/21/2024 6:03 PM ENGINEERING INSPECTOR Respiratory Rate 22 10/21/2024 6:03 PM ENGINEERING INSPECTOR Oxygen Saturation 98% 10/21/2024 6:0 3 PM ENGINEERING INSPECTOR Inhaled Oxygen Concentration - - Weight 124 kg (273 lb 9.6 oz) 10/21/2024 5:59 PM ENGINEERING INSPECTOR Height 162.6 cm (5' 4) 10/21/2024 5:59 PM ENGINEERING INSPECTOR Body Mass Index 46.96 10/21/2024 5:59 PM ENGINEERING INSPECTOR Plan of Treatment Health Maintenance Due Date Last Done Comments HIV Screening 1981 Hepatitis C Screening 1981 Lipid (Cholesterol) Screening 1981 Mammogram 1981 COVID-19 Vaccine (#1) 1986 Hepatitis B Vaccines (1 of 3 - 19+ 3-dose series) 2000 Pneumococcal vaccine (0-49 years) (1 of 2 - PCV) 2000 Zoster Vaccines (1 of 2) 2000 Cervical/Vaginal Cancer Screening 02/16/2021 02/16/2018 Asthma Action Plan 05/07/2023 Asthma Control Test Questionnaire 05/07/2023 Asthma Management/Exacerbati on Questionnaire (AMQ/AEQ) 05/07/2023 Office Visit for Blood Press ure Check / Re-check 08/07/2023 05/07/2023 Creatinine Level (Kidney Function Test) 05/07/2024 05/07/2023 Potassium Level 05/07/2024 05/07/2023 Sodium Level 05/07/2024 05/07/2023 Influenza Vaccine (#1) 2024 , 08/07/2020, 09/16/2019, Additional history exists Depression Screening (Annual PHQ-2) 10/05/2024 Hydroxychloroquine (PLAQUENI L) Annual Exam 10/30/2024 DTaP,Tdap,and Td Vaccines (4 - Td or Tdap) 05/27/2029 05/27/2019, 12/02/2016, 06/29/1986 HPV Vaccines Aged Out No longer eligi ble based on patient's age to complete this topic IPV Vaccines Aged Out No longer eligi ble based on patient's age to complete this topic Procedures Procedure Name Priority Date/Time Associated Diagnosis Comments DX CHEST AP OR PA AND LATERAL 2 VIEWS RAD - Semiurgent (Fast; most ED patients; some inpatients) 10/21/2024 6:49 PM ENGINEERING INSPECTOR Pneumonia COMPREHENSIVE METABOLIC PANEL, S/P Routine 05/07/2023 2:22 PM CDT Scleroderma Limited (HCC) Raynaud's Phenomena Without Gangrene Gastroesophageal Reflux Disease Without Esophagitis Chronic Cough from Last 3 Months or Most Recently Relevant to Health Maintenance Results * DX Chest AP or PA and Lateral 2 Views (10/21/2024 6:49 PM ENGINEERING INSPECTOR) Anatomical Region Laterality Modality Chest, Thoracic RST LOS, Tho racic ARZ LOS, Thoracic FLA LOS N/A Digital Radiography Impressions 10/21/2024 6:51 PM ENGINEERING INSPECTOR Mild bibasilar atelectasis. The lungs are otherwise clear. No focal consolidation. No cardiac silhouette and pulmonary vascularity. No definite acute rib fractures. Narrative 10/21/2024 6:51 PM ENGINEERING INSPECTOR EXAM: DX CHEST AP OR PA AND LATERAL 2 VIEWS Procedure Note Ritesh Patel M.D. - 10/21/2024 EXAM: DX CHEST AP OR PA AND LATERAL 2 VIEWS IMPRESSION: Mild bibasilar atelectasis. The lungs are otherwise clear. No focalconsolidation. No cardiac silhouette and pulmonary vascularity. Nodefinite acute rib fractures. Aleksey Meadows P.A.-C., P.A. IMG DIAGNOSTI C IMAGING PROCEDURES Final Result * Comprehensive Metabolic Panel (05/07/2023 2:22 PM CDT) [facility] Potassium, S 4.5 3.6 - 5.2 mmol/L 05/07/2023 3:43 PM CDT DTL Sodium, S 140 135 - 145 mmol/L 05/07/2023 3:43 PM CDT DTL Chloride, S 102 98 - 107 mmol/L 05/07/2023 3:43 PM CDT DTL Bicarbonate, S 27 22 - 29 mmol/L 05/07/2023 3:43 PM CDT DTL Anion Gap 11 7 - 15 05/07/2023 3:43 PM CDT DTL BUN (Blood Urea Nitrogen), S 8 6 - 21 mg/dL 05/07/2023 3:43 PM CDT DTL Creatinine 0.91 0.59 - 1.04 mg/dL 05/07/2023 3:43 PM CDT DTL Estimated GFR (eGFR) 81 >=60 mL/min/BS A 05/07/2023 3:43 PM CDT DTL Comment: Estimated GFR calculated using the 2020 CKD_EPI creatinine equation. Calcium, Total, S 9.4 8.6 - 10.0 mg/dL 05/07/2023 3:43 PM CDT DTL Glucose, S 103 70 - 140 mg/dL 05/07/2023 3:43 PM CDT DTL Protein, Total, S 7.0 6.3 - 7.9 g/dL 05/07/2023 3:43 PM CDT DTL Albumin, S 4.5 3.5 - 5.0 g/dL 05/07/2023 3:43 PM CDT DTL Aspartate Aminotransferase (AST), S 17 8 - 43 U/L 05/07/2023 3:43 PM CDT DTL Alkaline Phosphatase, S 52 35 - 104 U/L 05/07/2023 3:43 PM CDT DTL Alanine Aminotransferase (ALT), S 12 7 - 45 U/L 05/07/2023 3:43 PM CDT DTL Bilirubin, Total, S 1.1 <=1.2 mg/dL 05/07/2023 3:43 PM CDT DTL Blood (Blood, Venous) 05/07/2023 2:22 PM CDT 05/07/2023 3:09 PM CDT us Boby Zimmer III, M.D. LAB BLOOD ADD-ON Final Re sult [facility] [address] [place] [address], [place] DTL [facility] [address] [place] [address] from Last 3 Months or Most Recently Relevant to [place] [phone] [facility] Care Teams Irish Moss Gatherer Relationship Specialty Start Date End Date Elsewhere, Pcp PCP - General Internal Medicine 08/20/23
--- OUTSIDE RECORDS SUMMARY | 2024-11-03 17:59 | XMS_ITS | Encounter Summary ---
Author Organization [facility] Address [address] [place] [address] Care Team Providers Care Southeast Regional Sales Manager Name Role Phone Elsewhere, Pcp Primary Care Provider Unavailabl e Reason for Visit * Reason Comments Chest Wall Pain Patient presents wit h left side rib cage pain. She has been sick with a cough for two weeks. Was seen in urgent care a week ago at [facility] and started on antibiotics. But pain and cough are worsening Encounter Details Date Type Department Care Team (Late st Contact Info) Description 10/21/2024 7:15 PM KITCHEN WORK SUPERVISOR - 10/21/2024 9:35 PM KITCHEN WORK SUPERVISOR Emergency [facility] [address] [place] [phone] Aleksey Meadows P.A.-C., P.A. [address] [place] [address] [phone] Pneumonia (Primary Dx); Asthma Mild Intermittent With Acute Exacerbation (HCC) Discharge Disposition: Home or Self Care Social History Tobacco Use Types Packs/Day Years Used Date Smoking Tobacco: Never Passive Smoke Exposure: Never Smokeless Tobacco: Never Alcohol Use Standard Drinks/Week Comments Yes 8 [...] your living situation today? I have a [facility] place to live 05/02/2023 Comments No Sex and Gender Information Value Date Recorded Sex Assigned at Female 05/02/2023 7:33 PM CDT Legal Sex Female 2:16 PM CDT Gender Identity Female 05/02/2023 7:33 PM CDT Sexual Orientation Straight 05/02/2023 7: 33 PM CDT documented as of this encounter Last Filed Vital Signs Vital Sign Reading Time Taken Comments Blood Pressure 136/103 10/21/2024 6:07 PM KITCHEN WORK SUPERVISOR Patient expressed having High blood pressure Pulse 109 10/21/2024 6:03 PM KITCHEN WORK SUPERVISOR Temperature 36.3 C (97.3 F) 10/21/2024 6:03 PM KITCHEN WORK SUPERVISOR Respiratory Rate 22 10/21/2024 6:03 PM KITCHEN WORK SUPERVISOR Oxygen Saturation 98% 10/21/2024 6:0 3 PM KITCHEN WORK SUPERVISOR Inhaled Oxygen Concentration - - Weight 124 kg (273 lb 9.6 oz) 10/21/2024 5:59 PM KITCHEN WORK SUPERVISOR Height 162.6 cm (5' 4) 10/21/2024 5:59 PM KITCHEN WORK SUPERVISOR Body Mass Index 46.96 10/21/2024 5:59 PM KITCHEN WORK SUPERVISOR documented in this encounter Medications at Time of Discharge albuterol 2.5 mg /3 mL nebulizer solutionIndicatio ns:Asthma Mild Intermittent With Acute Exacerbation (HCC) Inhale 3 mL (2.5 mg total) by nebulization every 6 (six) hours as needed for wheezing. 75 mL 1 10/21/2024 albuterol 90 mcg/actuation inhaler Inhale 2 puffs as needed. 04/04/2022 amLODIPine (NORVASC) 10 mg tablet Take 10 mg by mouth daily. 08/31/2023 calcium carbonate 1000 mg (400 mg calcium) chewable tablet Chew 1 tablet daily. cholecalciferol, vitamin D3, (VITAMIN D3 ORAL) Take 50,000 Units by mouth once a week. cyanocobalamin (vitamin B-12) 1,000 mcg tablet Take 1,000 mcg by mouth daily. hydrOXYchloroQUIN E (PLAQUENIL) 200 mg tabletIndications :Scleroderma Limited (HCC) Take 1 tablet (200 mg total) by mouth 2 (two) times a day. 180 tablet 05/12/2023 LORazepam (ATIVAN) 0.25 mg tablet Take 0.25 mg by mouth as needed (flying). losartan-hydroCHL OROthiazide (HYZAAR) 100-25 mg per tablet Take 1 tablet by mouth daily. 03/23/2023 magnesium 250 mg tablet Take 250 mg by mouth daily. metoprolol succinate (TOPROL-XL) 200 mg 24 hr tablet Take 200 mg by mouth daily. norethindrone (MICRONOR) 0.35 mg tablet Take 1 tablet by mouth daily. pantoprazole (PROTONIX) 40 mg EC tablet Take 40 mg by mouth daily. 04/26/2023 pyridoxine, vitamin B6, (vitamin B-6) 100 mg tablet Take 100 mg by mouth daily. sertraline (ZOLOFT) 50 mg tablet Take 50 mg by mouth daily. cefdinir (Omnicef) 300 mg capsuleIndication s:Pneumonia Take 1 capsule (300 mg total) by mouth every 12 (twelve) hours for 5 days. 10 capsule 10/21/2024 5 predniSONE (Deltasone) 20 mg tabletIndications :Asthma Mild Intermittent With Acute Exacerbation (HCC) Take 2 tablets (40 mg total) by mouth daily for 5 days. 10 tablet 10/21/2024 5 documented as of this encounter Progress Notes * Aleksey Meadows P.A.-C., P.A. - 10/21/2024 9:24 PM CST SUBJECTIVE SUBJECTIVE Molly Bailey is a 44 y.o. female here with no relatives with complains of chest congestion, nasal blockage, post nasal drip, productive cough, sinus and nasal congestion, and wheezing and denied chills, myalgias, and night sweats. Onset 2 weeks, improved with antibiotic and prednisone, breathing started to get worse since finishing prednisone. Known exposure: none pertinent. Denied any pulmonic chest pain, bloody sputum, difficulty breathing. I have reviewed the current medication list. Allergies Allergen Reactions Cetirizine Hives (Reselect Reaction) and Hives only, no other systemic symptoms Codeine Other (see comments) and Itching Loratadine Hives (Reselect Reaction) and Hives only, no other systemic symptoms Hydrocodone Itching OBJECTIVE OBJECTIVE BP (!) 136/103 Comment: Patient expressed having High blood pressure Pulse 109 Temp 36.3 ??C (Temporal) Resp 22 Ht 162.6 cm Wt 124 kg SpO2 98% BMI 46.96 kg/m?? General appearance:alert, no distress, cooperative Ears: R TM - normal landmarks and mobility without significant erythema or bulging, no tragus or pinnae tenderness L TM - normal landmarks and mobility without significant erythema or bulging, no tragus or pinnae tenderness Nose: mucosal edema and congestion Oropharynx: normal and no erythema or exudates noted. Teeth and gums normal. Neck: supple and no lymphadenopathy; trismus absent Lungs: Positive findings: rales, right base, rhonchi, right base, wheezing, bibasilar, bronchial breath sounds, right base, and decreased breath sounds, right base and Negative findings: no chest wall tenderness and no chest deformities noted Heart: regular rate and rhythm Skin: Skin color, texture, turgor normal. No rashes or lesions DIAGNOSTICS: DX Chest AP or PA and Lateral 2 Views Result Date: 10/21/2024 Impression: Mild bibasilar atelectasis. The lungs are otherwise clear. No focal consolidation. No cardiac silhouette and pulmonary vascularity. No definite acute rib fractures. ASSESSMENT and Plan: Diagnosis Plan 1. Pneumonia Active DX Chest AP or PA and Lateral 2 Views DX Chest AP or PA and Lateral 2 Views cefdinir (Omnicef) 300 mg capsule 2. Asthma Mild Intermittent With Acute Exacerbation (HCC) Acute Adult Oxygen Therapy PRN albuterol 2.5 mg /3 mL nebulizer solution predniSONE (Deltasone) 20 mg tablet Cannot rule out pneumonia in the RLL, will add beta lactam. Go to the ED with the worsening of breathing. Revisit asthma control with your primary care provider at the end of the treatment course. Fluids, vaporizer, acetaminophen. Elevate the head of the bed at night for added comfort. Recheck as needed for persistence, worsening, appearance of new symptoms. Side effects of the prescribed/recommended medications discussed. Questions answered. Aleksey Meadows P.A.-C., P.A. Aleksey Meadows P.A.-C., P.A. 10/21/242131 HEN WORK SUPERVISOR documented in this encounter Plan of Treatment Not on file documented as of this encounter Procedures Procedure Name Priority Date/Time Associated Diagnosis Comments DX CHEST AP OR PA AND LATERAL 2 VIEWS RAD - Semiurgent (Fast; most ED patients; some inpatients) 10/21/2024 6:49 PM KITCHEN WORK SUPERVISOR Pneumonia documented in this encounter Results * DX Chest AP or PA and Lateral 2 Views (10/21/2024 6:49 PM KITCHEN WORK SUPERVISOR) Anatomical Region Laterality Modality Chest, Thoracic RST LOS, Tho racic ARZ LOS, Thoracic FLA LOS N/A Digital Radiography Impressions 10/21/2024 6:51 PM KITCHEN WORK SUPERVISOR Mild bibasilar atelectasis. The lungs are otherwise clear. No focal consolidation. No cardiac silhouette and pulmonary vascularity. No definite acute rib fractures. Narrative 10/21/2024 6:51 PM KITCHEN WORK SUPERVISOR EXAM: DX CHEST AP OR PA AND LATERAL 2 VIEWS Procedure Note Ritesh Patel M.D. - 10/21/2024 EXAM: DX CHEST AP OR PA AND LATERAL 2 VIEWS IMPRESSION: Mild bibasilar atelectasis. The lungs are otherwise clear. No focalconsolidation. No cardiac silhouette and pulmonary vascularity. Nodefinite acute rib fractures. Aleksey Meadows P.A.-C., P.A. IMG DIAGNOSTI C IMAGING PROCEDURES Final Result documented in this encounter Visit Diagnoses Diagnosis Pneumonia- Primary Asthma Mild Intermittent With Acute Exacerbation (HCC) documented in this encounter Care Teams Southeast Regional Sales Manager Relationship Specialty Start Date End Date Elsewhere, Pcp PCP - General Internal Medicine 08/20/23 documented as of this encounter
--- OUTSIDE RECORDS SUMMARY | 2024-11-03 18:00 | XMS_ITS | Clinical Summary ---
Author Organization [facility] Address [address] [place] [address] Care Team Providers Care Charhouse Worker Name Role Phone Pcp, Pt Declines MD Primary Care Provider [phone] Source Comments You are receiving this document as you are listed as the primary care provider,follow-up provider, or the patient has been referred to you for consultation.This is in compliance with the Medicare and[facility] EHR Incentive Program,which states Providers who transition their patient to another setting of careor provider of care or refers their patient to another provider of care shouldprovide summary care record for each transition of care or referral. [employer] Allergies Active Allergy Reactions Criticality Noted Date Comments Cetirizine Hives High 02/15/2017 Codeine Itching 09/30/2023 Hydrocodone Itching 05/05/2023 Loratadine Hives High 10/11/2005 Oxycodone Itching 09/30/2023 Medications Medication Sig Dispensed Refills Start Date End Date Status LORazepam (ATIVAN) 0.25 MG sublingual tablet Take 1 Tablet (0.25 mg) by mouth every 24 hours as needed (flying). Active hydroxychloroquine (PLAQUENIL) 200 MG tablet Take 1 Tablet (200 mg) by mouth daily. 05/12/2023 Active vitamin B-12 (AKA: CYANOCOBALAMIN) 1000 MCG tablet Take 1 Tablet (1,000 mcg) by mouth daily. Active losartan/hydrochloro thiazide (HYZAAR) 100-25 MG tablet Take 1 Tablet by mouth daily. 09/22/2023 Active MAGNESIUM OR Take 250 mg by mouth daily. Active Norethindrone, Contraceptive, (MICRONOR) 0.35 MG tablet Take 1 Tablet (0.35 mg) by mouth daily. Active pantoprazole DR (PROTONIX) 40 MG tablet Take 1 Tablet (40 mg) by mouth daily. 04/26/2023 Active pyridoxine (VITAMIN B-6) 100 MG tablet Take 1 Tablet (100 mg) by mouth daily. Active sertraline (ZOLOFT) 50 MG tablet Take 1 Tablet (50 mg) by mouth daily. Active ergocalciferol (DRISDOL) 1.25 MG (97209 UT) capsule Take 1 Capsule (50,000 Units) by mouth once every week. Active metoprolol succinate (TOPROL-XL) 200 MG 24 hour release tablet Take 1 Tablet (200 mg) by mouth daily. Active Calcium Carbonate Antacid 1000 MG Chew and swallow 1 Tablet (1,000 mg) by mouth daily as needed (Heartburn). Active silver sulfADIAZINE (SILVADENE) 1 % cream Apply a small amount topically to area on foot two times per day and cover 50 g 11/04/2023 Active NIFEdipine XL (PROCARDIA XL) 30 MG 24 hour release tabletIndications:Li mited systemic sclerosis (HRC),Raynaud's phenomenon without gangrene (HRC) Take 1 Tablet (30 mg) by mouth daily. 90 Tablet 3 11/20/2023 11/19/2024 Active Active Problems Problem Noted Date Diagnosed Date Seasonal allergic rhinitis 05/07/2023 Raynaud's phenomenon 05/07/2023 Primary hypertension 05/07/2023 Obstructive sleep apnea syndrome 05/07/2023 Obsessive compulsive disorder 05/07/2023 Generalized anxiety disorder 05/07/2023 Nontoxic single thyroid nodule 05/07/2023 Limited systemic sclerosis 05/07/2023 Overview (09/30/2023): Manifestations: Asymmetric biphasic Raynaud's phenomenon, arthralgia, fatigue, telangiectasias on right hand fingers and forehead, and GERD. Outside testing revealed positive ALFREDO centromere pattern 1:2560. Lichen simplex chronicus 05/07/2023 Overview (09/30/2023): Lesion on the underside right chin showed inflammatory dermal infiltrate suggestive of lichen simplex chronicus. There is no evidence for morphea. Gastroesophageal reflux disease without esophagi tis 05/07/2023 Asthma 05/07/2023 Immunizations Name Administration Dates Next Due DTP 06/29/1986 Fluzone Qiv Multidose Vial 0.25 (6-35 Mos) 09/16,06/30/2017,07/11/2016 Influenza IIV4 (Quadrivalent) 0.5mL (57002) 06/05,08/07/2020,08/10/2018 OPV, Trivalent (Orimune or tOPV) 06/29/1986 Tdap 05/27/2019,12/02/2016 Family History Medical History Relation Name Comments Osteoporosis Mother Willow Relation Name Status Comments Father Joe Alive Mother Willow Alive Brother Levy Alive Social History Tobacco Use Types Packs/Day Years Used Date Smoking Tobacco: Never Smokeless Tobacco: Never Alcohol Use Standard Drinks/Week Comments Yes 14 (1 standard drink = 0.6 oz pu re alcohol) Sex and Gender Information Value Date Recorded Sex Assigned at Not on file Gender Identity Not on file Sexual Orientation Not on file Last Filed Vital Signs Vital Sign Reading Time Taken Comments Blood Pressure 175/99 11/02/2023 2:58 PM [facility]GAN T[facility]ER Pulse 77 11/02/2023 2:58 PM [facility]GAN T[facility] Temperature 36.7 C (98.1 F) 11/02/2023 2:58 PM [facility] T[facility] Respiratory Rate 15 11/02/2023 2:58 PM [facility]GAN T[facility]ER Oxygen Saturation 100% 11/02/2023 2:58 PM [facility] Inhaled Oxygen Concentration - - Weight 117.9 kg (260 lb) 06/19/2017 8:11 AM CDT Height 162.6 cm (5' 4) 06/19/2017 8:11 AM CDT Body Mass Index 44.63 06/19/2017 8:11 AM CDT Plan of Treatment Upcoming Encounters Date Type Department Care Team (Late st Contact Info) Description 11/23/2024 2:15 PM [facility] Appointment Rheumatology at [facility] [place] [address] Gerardo Nugent MD [address] [place] [address] Health Maintenance Due Date Last Done Comments Cervical Cancer Screening Due 1981 Mammogram 1981 Asthma ACT 1985 IPV (Polio) (2 of 3 - 4-dose series) 07/27/1986 06/29/1986 Pneumococcal (1 - PCV) 1987 HIV Screening (Preventive Services) 1997 Adult Preventive Visit 1999 HepB (1) 2000 COVID-19 Vaccine (1 - 2023- season) 2024 Influenza (#1) 2024 06/22/2021, 12/2019, 09/16/2019, Additional history exists DTaP/Tdap/Td (4 - Tdap) 05/27/2029 05/27/20, 12/02/2016, 06/29/1986 Zoster/Shingles (1 of 2) 2031 Hep C Screening (Preventive Services) Completed 09/30/2023 HPV Vaccine Aged Out No longer eligi ble based on patient's age to complete this topic HepA Aged Out No longer eligi ble based on patient's age to complete this topic Hib Aged Out No longer eligi ble based on patient's age to complete this topic MCV4 Aged Out No longer eligi ble based on patient's age to complete this topic Procedures Procedure Name Priority Date/Time Associated Diagnosis Comments HEPATITIS C ANTIBODY, WITH REFLEX Routine 09/30/2023 3:19 PM [facility] T[facility]ER Limited systemic sclerosis (HRC) from Last 3 Months or Most Recently Relevant to Health Maintenance Results * Hepatitis C Antibody, with Reflex (09/30/2023 3:19 PM ORGAN T[facility]ER) Hepatitis C Antibody Negative (Non Reactive) Negative (Non Reactive) 09/30/2023 9:07 PM ORGAN T[facility]ER [facility] Comment:Antibodies to HCV no t detected. Does not exclude the possiblity of exposure to HCV. Blood Venipuncture / Unknown 09/30/2023 3:19 PM ORGAN TUNER 09/30/2023 3:19 PM ORGAN TUNER Gerardo Nugent MD [facility] [address] [place] [address], [facility] from Last 3 Months or Most Recently Relevant to Health Maintenance Care Teams Charhouse Worker Relationship Specialty Start Date End Date Pcp, [place] [address] PCP - General 05/13/17
== END 2024-11-03 18:06 | disposition home or self-care (01) ==
PROVIDERS: Emergency Provider Emergency Medicine Emergency Medical Services; PCP Family Medicine
DX: M54.16 Radiculopathy, lumbar region (principal)
CPT/HCPCS: 96372; 99283; 99284; J1885

== ENCOUNTER 2024-12-23 14:44 | Outpatient (CLI) | payer BC, SELFPAY ==
--- NOTE | 2024-12-23 15:00 | CRLHL7_ITS ---
For Patients: As a result of the Century Cures Act, medical imaging exams and procedure reports are released immediately into your electronic medical record. You may view this report before your referring provider. If you have questions, please contact your health care provider. BILATERAL SCREENING MAMMOGRAM WITH COMPUTER-AIDED DETECTION AND TOMOSYNTHESIS TECHNIQUE: CC and MLO views were obtained. These mammographic images have been obtained using full-field digital technique. These mammographic images were interpreted with the benefit of computer-aided detection. Breast Tomosynthesis was used in this interpretation. COMPARISON FILM: 10/13/23, 06/12/22. FINDINGS: There are scattered areas of fibroglandular density IMPRESSION: There is no radiographic evidence for malignancy. ASSESSMENT: BI-RADS Category 1: Negative RECOMMENDATION: Routine screening mammogram in 1 year. A lay language report of this examination will be provided to the patient. Isiah Boyer M.D. Diagnostic Radiologist [email or web address] ANDREW/cony / bM/Dictated by: Isiah Boyer MD @ 01/02/2025 8:51:00 AM (Electronically Signed)
== END 2024-12-23 14:45 | disposition home or self-care (01) ==
LOC: MAMMO 14:45
PROVIDERS: PCP Family Medicine; Visit Provider Physician Assistant
DX: Z12.31 Encounter for screening mammogram for malignant neoplasm of breast (principal)
CPT/HCPCS: 77063; 77067

== ENCOUNTER 2025-03-15 12:49 | Outpatient (CLI) | payer BC, SELFPAY | END 2025-03-15 12:50 | disposition home or self-care (01) | PROVIDERS: PCP Family Medicine; Visit Provider Family Medicine | DX: I10 Essential (primary) hypertension (principal); G47.00 Insomnia, unspecified | CPT/HCPCS: 80053; 80061; 85025 ==